=== PATIENT | male | born 1980 | race African-American/Black ===

== ENCOUNTER 2017-12-10 21:44 | Emergency (ER) | payer OTHER ==
[~2017-12-10] VITALS: Ht 167.6 cm; Wt 80.0 kg
[~2017-12-10 21:44] MED LIST: ZOVI800T13 PO
[2017-12-10 21:50] VITALS: BP 132/84; PULSE 67; RESP 18; TEMP 98.2; O2SAT 98
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
[2017-12-11] MEDS ORDERED: DEXAMETHASONE SOD PHOS 20 MG/5 ML VIAL IM ONE
[2017-12-11] MEDS ORDERED: KETOROLAC TROMETHAMINE 60 MG/2 ML (IM) VIAL IM ONE
== END 2017-12-11 00:58 | disposition home or self-care (01) ==
LOC: NEPD 21:44
DX: S06.0X1A Concussion with loss of consciousness of 30 minutes or less, initial encounter (principal); M54.2 Cervicalgia; M54.5 Low back pain; V43.52XA Car driver injured in collision with other type car in traffic accident, initial encounter; Y92.410 Unspecified street and highway as the place of occurrence of the external cause
CPT/HCPCS: 70450; 71045; 72125; 72128; 72131; 96372; 99284; J1100; J1885